=== PATIENT | male | born 1935 | race Caucasian/White ===

== ENCOUNTER 2020-03-11 10:37 | Emergency (ER) | payer OTHER, SELFPAY ==
[~2020-03-11] VITALS: Ht 165.1 cm; Wt 59.0 kg
[~2020-03-11 10:37] MED LIST: CODE BLUE PARTICIPANT 1 EA MISC MC ONE
--- NOTE | 2020-03-11 10:37 | NUR ---
CARDIOPULMONARY ARREST Flakita HARPER, MARCELA; GREG, MARCELA ATTENDING
--- NOTE | 2020-03-11 10:37 | NUR ---
1034---Patient TYRONE ALS accompanied by ME 134 with CPR in progress, transferred to bed 9. CPR continued by [facility] staff. Dr. Maurer is evaluating the patient at bedside.
--- NOTE | 2020-03-11 10:40 | NUR ---
84/M BIBA FROM HOME IN CARDIAC ARREST, LAST SEEN NORMAL BY FAMILY WAS AT APPROXIMATELY 0955. HX DEMENTIA. 911 WAS CALLED TO HOME. EMS ARRIVED ON SCENE AND FOUND PT UNCONSCIOUS, IN V. FIB, PT RECEIVED DEFIBRILATION X1, THEN PT WENT INTO ASYSTOLE FOR 10-12 MINUTES WHERE CPR AND ACLS CONTINUED. PT ACHIEVED ROSC INTO A SINUS ARRYTHMIA, PT THEN WENT INTO PEA. PT RECEIVED A TOTAL OF X3 EPI, 300 NS BOLUS DURING RESUSITATION. IO ESTABLISHED TO RIGHT TIBIA. BS 186. PT ARRIVED HERE TO ED WHERE ACLS AND CPR CONTINUED. DR. ARBOLEDA AT BEDSIDE. PT ARRIVED TO ED ASYSTOLE, CPR IN PROGRESS. HX DEMENTIA
--- NOTE | 2020-03-11 11:05 | NUR ---
PLEASE SEE CODE SHEET IN CHART.
--- NOTE | 2020-03-11 11:35 | NUR ---
[facility] RELEASED THE BODY. REFERENCE # [id number]
--- NOTE | 2020-03-11 12:15 | NUR ---
SPOKE TO WILBUR FROM [facility] IN [place]. WILBUR INFORMED ME THEY CANNOT PAYABLE MANAGER THE PATIENT UNTIL 7 DAYS. I GOT VERBAL AUTHORIZATION FROM MORTUARY, CONSENT WAS GIVEN BY FAMILY TO PAYABLE MANAGER THE PATIENT IN 7 DAYS. 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
--- NOTE | 2020-03-11 13:35 | NUR ---
PT RELEASED BY THE [employer] INST[employer]ER. DEPUTY SRIVASTAVA.
--- NOTE | 2020-03-11 13:50 | NUR ---
PT MOVED OVER TO [facility]. PERSONAL BELONGINGS PLACED IN BAG, LABELED AND GIVEN TO SECURITY.
== END 2020-03-11 11:03 ==
LOC: MED 10:37
DX: I46.9 Cardiac arrest, cause unspecified (principal); F03.90 Unspecified dementia, unspecified severity, without behavioral disturbance, psychotic disturbance, mood disturbance, and anxiety
CPT/HCPCS: 92950; 99285